=== PATIENT | female | born 1985 | race Two or more races ===

== ENCOUNTER 2017-09-05 17:19 | Emergency (ER) | payer MEDICAID ==
[~2017-09-05] VITALS: Ht 165.1 cm; Wt 82.6 kg
[2017-09-05 18:41] VITALS: BP 149/93
[2017-09-05 20:24] LABS: Basophils # (auto) 0 uL; Eosinophils # (auto) 0.1 uL; Monocytes # (auto) 0.6 uL; Nucleated Red Blood Cells % 0.1 %
[2017-09-05 20:26] LABS: Basophils % (auto) 0.2 % (0.0-2.0); Eosinophils % (auto) 0.7 % (0.0-7.0); Hematocrit 35.7 % (36.0-46.0); Hemoglobin 10.8 g/dL (12.2-16.2); Lymphocytes # (auto) 1.5 uL; Lymphocytes % (auto) 13.9 % (10.0-50.0); Mean Corpuscular Hemoglobin 20.7 pg (28.0-32.0); Mean Corpuscular Hgb Conc. 30.4 g/dL (32.0-36.0); Mean Corpuscular Volume 68.2 fL (80.0-100.0); Mean Platelet Volume 6.7 fL (6.9-10.8); Monocytes % (auto) 5.9 % (0.0-12.0); Neutrophils # (auto) 8.6 uL; Neutrophils % (auto) 79.3 % (37.0-80.0); Platelet Count (auto) 377 10^3/uL (140-450); Red Cell Distribution Width 19.5 % (11.8-14.3); White Blood Cell 10.8 10^3/uL (4.4-10.8)
[2017-09-05 20:43] LABS: Albumin 2.5 g/dL (3.4-5.0); BUN/Creatinine Ratio 11.1; Calcium 8.9 mg/dL (8.5-10.1)
[2017-09-05 20:46] LABS: Bilirubin, Total 0.4 mg/dL (0.2-1.0); Total Protein 7.5 g/dL (6.4-8.2)
[2017-09-05 21:30] LABS: Platelet Estimate Adequate
[2017-09-05 21:31] LABS: Anisocytosis Moderate; Burr Cells FEW; Hypochromia Moderate; Microcytosis Marked; Tear Drop Cells FEW
[2017-09-05 21:32] LABS: Ovalocytes FEW
== END 2017-09-05 20:00 | disposition home or self-care (01) ==
LOC: ER 17:19 → UNDOADMOB 17:20 → LDRP 17:20
DX: O26.893 Other specified pregnancy related conditions, third trimester (principal); R42 Dizziness and giddiness; R11.0 Nausea; Z3A.39 39 weeks gestation of pregnancy
CPT/HCPCS: 36415; 80053; 84550; 85025

== ENCOUNTER 2017-09-05 20:08 | Observation (INO) | payer MEDICAID | END 2017-09-05 22:53 | disposition home or self-care (01) | DRG 566 | LOC: LDRP 20:08 | PROVIDERS: ADMIT Obstetrics & Gynecology; ATTEND Obstetrics & Gynecology | DX: O21.2 Late vomiting of pregnancy (principal); E86.0 Dehydration; O99.283 Endocrine, nutritional and metabolic diseases complicating pregnancy, third trimester; O26.893 Other specified pregnancy related conditions, third trimester; R00.2 Palpitations; Z3A.37 37 weeks gestation of pregnancy | CPT/HCPCS: 59025; 81002; G0378 ==